=== PATIENT | female | born 2000 | race Caucasian/White ===

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

== ENCOUNTER 2019-06-09 07:37 | Outpatient (CLI) | payer OTHER ==
--- NOTE | 2019-06-09 08:56 | ULT ---
HEPATIC DUPLEX ULTRASOUND INCLUDING COLOR AND SPECTRAL DOPPLER IMAGING: HISTORY: Ulcerative colitis. FINDINGS: Liver echogenicity appears unremarkable. The gallbladder demonstrates no evidence of gallstones, que stionable trace sludge. No common duct or intrahepatic ductal dilatation. No focal liver masses. T he spleen appears unremarkable. Hepatic and portal venous flow was antegrade. IMPRESSION: Unremarkable hepatic ultrasound. Antegrade hepatic and portal venous flow. POS: [facility]
== END 2019-06-09 07:38 | disposition home or self-care (01) ==
LOC: BICULT 07:37
PROVIDERS: ATTEND Internal Medicine Gastroenterology
DX: K51.90 Ulcerative colitis, unspecified, without complications (principal); D50.9 Iron deficiency anemia, unspecified; E55.9 Vitamin D deficiency, unspecified
CPT/HCPCS: 76705